=== PATIENT | male | born 1980 | race Asian ===

== ENCOUNTER 2016-07-07 08:03 | Day surgery (SDC) | payer OTHER ==
[~2016-07-07] VITALS: Ht 177.8 cm; Wt 72.6 kg
[2016-07-07 08:24] VITALS: BP 137/82
[2016-07-07 11:42] VITALS: BP 119/73
== END 2016-07-07 11:50 | disposition home or self-care (01) ==
LOC: GI 08:03 → OR 10:30 → GI 11:50
PROVIDERS: Internal Medicine Gastroenterology
PROC: 0DJD8ZZ Inspection of Lower Intestinal Tract, Via Natural or Artificial Opening Endoscopic (ICD-10-PCS; principal; 2016-07-07 09:30)
DX: K64.9 Unspecified hemorrhoids (principal)
CPT/HCPCS: 45378; J1200; J1610; J2250; J2310; J3010; J3490